=== PATIENT | female | born 1960 | race Caucasian/White ===

== ENCOUNTER → 2019-04-30 12:19 | Outpatient (CLI) | payer OTHER, MEDICAID, SELFPAY ==
--- NOTE | 2019-04-30 | DI.MRI.S_ITS ---
PROCEDURE: MR LUMBAR SPINE WO CON INDICATIONS: LUMBAR RADICULOPATHY TECHNIQUE: Noncontrast sagittal T1 spin echo and T2 fast echo, sagittal STIR, axial T1 and T2 fast spin echo through the lumbar spine. In cases with scoliosis, additional coronal T2 fast spin echo may be performed. COMPARISON: [facility], RG, XR L-SPINE 4-6V, 02/06/2019, 9:34. FINDINGS: Image quality: Excellent. Alignment and Curvature: 5 lumbar type vertebral bodies are present by plain film. There is mild grade 1 retrolisthesis of L4 on L5 and L3 on L4. Bone Marrow: Marrow is of normal overall signal. No acute vertebral body compression fractures. Moderate reactive signal within the endplates adjacent to the 5S1 intervertebral disc. Spinal Cord: Conus medullaris terminates at the L1-L2 disc space level. Visualized cord demonstrates normal signal and size. Paraspinous Soft Tissues: No paravertebral masses. L1-L2: Normal appearance. L2-L3: Mild facet and ligamentum hypertrophy. No significant canal stenosis. No foraminal stenosis. L3-L4: There is mild facet and ligament flavum hypertrophy. Moderate lipomatosis. Mild canal stenosis. Mild bilateral foraminal stenosis. L4-L5: Moderate disc height loss and desiccation. Mild diffuse disc bulge. Mild facet and ligament flavum hypertrophy bilaterally. Mild canal stenosis. Mild foraminal stenosis bilaterally. L5-S1: Severe disc height loss and desiccation. Mild diffuse disc bulge. Mild bilateral facet hypertrophy. Mild canal stenosis. Moderate subarticular foraminal stenosis bilaterally. IMPRESSION: 1. Multilevel degenerative disc and facet disease, as well as ligamentum flavum hypertrophy and epidural lipomatosis. 2. Mild multilevel canal stenoses. 3. Multilevel foraminal stenoses, worst at L5-S1, where there are moderate foraminal stenoses bilaterally. Dictated by: Alistair Lebron M.D. on 05/01/2019 at 13:52 Approved by: Alistair Lebron M.D. on 05/01/2019 at 13:54
== END ==
PROVIDERS: Visit Provider Physical Medicine & Rehabilitation
DX: M51.16 Intervertebral disc disorders with radiculopathy, lumbar region (principal); M51.17 Intervertebral disc disorders with radiculopathy, lumbosacral region; M48.061 Spinal stenosis, lumbar region without neurogenic claudication; M48.07 Spinal stenosis, lumbosacral region; E88.2 Lipomatosis, not elsewhere classified
CPT/HCPCS: 72148

== ENCOUNTER 2019-06-15 13:38 | Outpatient (CLI) | payer OTHER, MEDICAID, SELFPAY ==
[2019-06-15] VITALS (8 sets, daily range): BP systolic 140–193; BP diastolic 73–107; PULSE 62–72; RESP 16; TEMP 36.7; O2SAT 94–98
--- NOTE | 2019-06-15 13:40 | DI.RAD.S_ITS ---
PROCEDURE: PAIN L INTERLAMINAR/CAUDAL INJ INDICATIONS: SPINA BIFIDA FINDINGS: Fluoroscopic spot filming was performed to verify placement of spinal needles at the L5-S1 level(s), as labeled on the films. Appropriate location(s) of the needle tip(s) was confirmed by injection of iodinated contrast. Dictated by: Anthony Solis M.D. on 06/15/2019 at 16:34 Approved by: Anthony Solis M.D. on 06/15/2019 at 16:34
[2019-06-15] MEDS: MIDAZOLAM 5 MG/5 ML VIAL IV (14:48)
[2019-06-15] MEDS: fentaNYL 100 MCG/2 ML INJ 50 MCG IV (14:48)
[2019-06-15] MEDS: BETAMETHASONE 30 MG/5 ML MDV 6 MG INJ (14:57)
[2019-06-15] MEDS: BUPIVACAINE 0.25% (PF) VIAL 2 ML INJ (14:57)
[2019-06-15] MEDS: DEXAMETHASONE 10 MG/ML VIAL 20 MG INJ (14:57)
[2019-06-15] MEDS: IOPAMIDOL 15 ML VIAL 3 ML INJ (14:57)
--- NOTE | 2019-06-15 14:59 | PC.NURSE ---
Post procedure transfer note: Patient medicated per providers orders. Tolerated procedure throughout. VSS. O2 Sat WNL. Able to sit up and transfer to w/c with stand by assist. Pain level 0/10. Handoff report given to Delma Daly RN. VSS prior to transfer.
--- NOTE | 2019-06-15 15:01 | P.PCN_ITS ---
Procedures Date/Time Date of procedure: 06/15/19 Time of procedure: 15:01 General Procedure description: PROVIDER: Delano Venegas DO Operative Note PREOP DIAGNOSIS 1. HNP WITH RADICULAR FEATURES, 2. MULTILEVEL CENTRAL STENOSIS, POST OP DIAGNOSIS 1. HNP WITH RADICULAR FEATURES, 2. MULTILEVEL CENTRAL STENOSIS, PROCEDURES 1. FLUORSCOPICALLY GUIDED CONTRAST CONTROLLED INTERLAMINAR EPIDURAL STEROID INJECTION - para left L5/S1 PHYSICIAN: Delano Venegas DO INDICATIONS Vanessa is referred by TA Patterson for treatment of Bilateral Foraminal Stenosis L>R LE symptoms. FINDINGS Multilevel Central Spinal Stenosis with Nerve Root Compression DESCRIPTION OF PROCEDURE Fluoroscopically guided, contrast-controlled para left L5/S1 translaminar epidural steroid injection. Following review of allergy and review of potential side effects and complications, including, but not necessarily limited to, infection, allergic reaction, local tissue breakdown, temporary as well as permanent nerve injury, paralysis, stroke and possible , the patient indicated that the patient understood and agreed to proceed. An informed consent document was signed by the patient, witnessed by a nurse, and placed in the patient's chart. Additionally, other treatment options including modalities, medications, and physical therapy were reviewed with the patient. After review of previous anaesthesic history and IV conscious sedation the patient was deemed safe to proceed with todays procedure with IV conscious sedation as ASA class II designation. Safety time-out was performed to confirm patient ID, procedure to be performed and site of procedure. IV sedation was accomplished with a combination of 2mg of Versed and 50mcg of Fentanyl administered by the RN after DO order, titrated to patient comfort during the course of the procedure while the patient remained responsive to all verbal commands. In the prone position, following sterile prep and drape of the lumbar region, the para left L5/S1 translaminar space was identified fluoroscopically. The skin was anesthetized via a 25-gauge, 1.5-inch needle with 1% lidocaine solution. At this point, a 22-gauge short bevel spinal needle was atraumatically introduced and advanced under fluoroscopic guidance into the region of the para left L5/S1 translaminar space. Depth was confirmed on lateral view. Radiological data, including multiple fluoroscopic views of the lumbar spine, r eveal a spinal needle at the para left L5/S1 translaminar space. Lateral views then show placement of the needle in the epidural space. Subsequent views show contrast material flowing superiorly and inferiorly in the epidural space. No vascular or intrathecal uptake is observed. At this point, using loss of resistance technique with saline and air, the epidural space was entered. This was confirmed following negative aspiration with injection of approximately 1.5cc of Isovue 200, showing excellent epidural flow without vascular or intrathecal uptake. At this point, 1cc of 0.25% Marcaine solution combined with 3cc or 20mg of dexamethasone and 6mg of betamethasone was injected without incident. The patent tolerated the procedure without signs of symptoms of complications prior to transfer to the recovery area for further monitoring. The patient was then transferred to the recovery area where they were observed for an appropriate period of time after the injection. The patient reported a VAS score of 6 prior to the procedure and a post-procedure VAS of 0. Total Fluoroscopy Time: 5 seconds Total Conscious Sedation Time: 24min POST OP INSTRUCTIONS The patient was provided a Pain Log to continue to record their response to the target-specific procedure prior to follow-up visit with their referring physician. Additionally, specific post-injection care instructions and a contact number to our office were provided if concerns arise regarding possible complications associated with the procedure are suspected. Delano Venegas, Complications: none
--- NOTE | 2019-06-15 15:13 | PC.NURSE ---
ACCEPTED CARE OF PT IN POST PROC AREA IN STABLE CONDITION. VSS, A&OX4, STEADY ON FEET.
== END 2019-06-15 15:29 | disposition home or self-care (01) ==
LOC: RAD 13:39
PROVIDERS: Visit Provider Physical Medicine & Rehabilitation
DX: M51.17 Intervertebral disc disorders with radiculopathy, lumbosacral region (principal); M48.07 Spinal stenosis, lumbosacral region
CPT/HCPCS: 62323; 99152; J0702; J1100; J2250; J3010

== ENCOUNTER → 2020-04-05 15:42 | Outpatient (CLI) | payer OTHER, MEDICAID, SELFPAY ==
--- NOTE | 2020-04-05 15:46 | DI.RAD.S_ITS ---
PROCEDURE: XR HIP W PEL IF DONE LT 2V INDICATIONS: FEMOROACETABULAR IMPINGEMENT TECHNIQUE: AP pelvis with lateral view(s) of the left hip(s). COMPARISON: [facility], RG, XR PELVIS WITH LATERAL HIP, 02/06/2019, 9:39. FINDINGS: Bones: No fracture. Severe left hip joint degeneration, sclerosis and spurring. Lower lumbar spondylosis and facet arthropathy. Mild right hip joint degeneration. Soft tissues: The visualized bowel gas pattern is normal. No suspicious soft tissue calcifications. IMPRESSION: Severe left hip joint degeneration. Interval progression since 02/06/19. Mild right hip joint degeneration grossly unchanged. Dictated by: Anthony Solis M.D. on 04/05/2020 at 16:46 Approved by: Anthony Solis M.D. on 04/05/2020 at 16:48
== END ==
PROVIDERS: PCP Nurse Practitioner; Referring Provider Physical Medicine & Rehabilitation; Visit Provider Physical Medicine & Rehabilitation
DX: M25.552 Pain in left hip (principal); M16.0 Bilateral primary osteoarthritis of hip; M47.816 Spondylosis without myelopathy or radiculopathy, lumbar region
CPT/HCPCS: 73502

== ENCOUNTER → 2024-12-19 08:19 | Outpatient (CLI) | payer OTHER, MEDICAID, SELFPAY ==
--- NOTE | 2024-12-19 08:25 | DI.RAD.S_ITS ---
PROCEDURE: XR PELVIS 1-2V INDICATIONS: LEFT HIP PAIN TECHNIQUE: 1 view(s) of the pelvis acquired. COMPARISON: [facility], CR, XR HIP W PEL IF DONE LT 2V, 04/05/2020, 15:48. FINDINGS: Bones: Patient is status post left total hip arthroplasty. There is no acute fracture or dislocation. The left acetabular prosthesis appears high in position, concerning for osteolysis or hardware loosening. No obvious loosening in the femoral prosthesis is seen. Soft tissues: Visualized bowel gas pattern is normal. No suspicious soft tissue calcifications. IMPRESSION: Prior left total hip arthroplasty. High position of the left acetabular prosthesis concerning for hardware loosening/failure. No acute fracture or dislocation. Dictated by: Manjeet Gasca M.D. on 12/19/2024 at 8:51 Approved by: Manjeet Gasca M.D. on 12/19/2024 at 9:01
--- NOTE | 2024-12-19 08:25 | DI.RAD.S_ITS ---
PROCEDURE: XR LUMBAR SPINE MIN 4V INDICATIONS: BACK PAIN TECHNIQUE: 5 views of the lumbar spine were acquired, including bilateral oblique views. COMPARISON: None. FINDINGS: Bones: 5 nonrib-bearing vertebrae are present. There is 3 mm anterolisthesis of L3 on L4 and L4 on L5. No vertebral body compression fractures. Degenerative endplate changes and bilateral facet arthrosis at L3-4 through L5-S1 levels are seen. No suspicious bony lesions. Soft tissues: Overlying bowel gas pattern is normal. No suspicious soft tissue calcifications. Oblique images: No pars defects. Bilateral bony foraminal stenosis is seen at L4-5 and L5-S1 levels. IMPRESSION: Grade 1 anterolisthesis of L3 on L4 and L4 on L5. No acute vertebral body compression fracture. Spondylitic changes at L3-4 through L5-S1 levels. No pars defects. Bilateral bony foraminal stenosis at L4-5 and L5-S1 levels are noted on oblique views. Dictated by: Manjeet Gasca M.D. on 12/19/2024 at 8:49 Approved by: Manjeet Gasca M.D. on 12/19/2024 at 8:51
== END ==
LOC: RAD 08:24
PROVIDERS: PCP Nurse Practitioner; Referring Provider Physical Medicine & Rehabilitation; Visit Provider Physical Medicine & Rehabilitation
DX: M16.52 Unilateral post-traumatic osteoarthritis, left hip (principal); M47.817 Spondylosis without myelopathy or radiculopathy, lumbosacral region; M47.816 Spondylosis without myelopathy or radiculopathy, lumbar region; M48.07 Spinal stenosis, lumbosacral region; M48.061 Spinal stenosis, lumbar region without neurogenic claudication; M25.859 Other specified joint disorders, unspecified hip; M43.16 Spondylolisthesis, lumbar region; Z96.642 Presence of left artificial hip joint
CPT/HCPCS: 72110; 72170